=== PATIENT | female | born 2000 | race African-American/Black ===

== ENCOUNTER 2019-07-24 23:37 | Emergency (ER) | payer SELFPAY ==
[2019-07-24 23:41] VITALS: BP 147/84; PULSE 90; RESP 16; TEMP 36.7; O2SAT 99
[2019-07-24 23:48] VITALS: RESP 16
--- NOTE | 2019-07-24 23:53 | ED.GENADUL_ITS ---
Discharge Plan Disposition Patient Disposition: HOME Condition: Stable Discharge Details Chief Complaint: GenMedical Clinical Impression: Rash ED Provider: Grant Benson Home Meds and New Rx's Prescriptions: No Action No Known Home Meds RF: 0 Discharge Instructions Instructions: Acute Rash (ED) Additional Instructions: Your rash is likely from the bug that was found in your bed if itching becomes more severe take 25mg benadryl every 6 hours as needed if rash doesn't resolve in 2-3 weeks see your primary care provider Medical Decision Making 19 yo female who denies chronic medical problems and travels frequently and has been staying in numerous different hotels comes in with mild itching rash for several days on abdomen. Denies fevers, gi symptoms, pain or respiratory symptoms. She did have a phhoto of a bug that was found in one of her beds. She has multiple areas of mild erythema not warm to touch and seems most likely contact dermatitis but possible bed bugs. ADvised to clean thoroughly and use steroid cream prn Differential Diagnosis Differential Diagnosis: dermatitis, bed bugs HPI General Date/Time Provider Initiated Documentation: 07/24/19 23:39 . History of Present Illness 19 year old F presents to the emergency department with the chief complaint of rash, described as moderate, and is localized to the abdomen. Patient reports no radiation. Patient started experiencing this day(s) (3) and it has been constant. No relieving factors improve symptom(s), No exacerbating factors reported . Patient did receive the following treatments prior to arrival, none Related Data Home Medications Medication Instructions Recorded Confirmed Unknown [No Known Home Meds] 07/24/19 07/24/19 Allergies Allergy/AdvReac Type Severity Reaction Status Date / Time No Known Allergies Allergy Unverified 07/24/19 23:44 General Stated Complaint: GenMedical CHRISTINE: 4 Review of Systems All systems reviewed & are unremarkable except as noted in HPI and below Constitutional Constitutional: Denies chills, Denies fever(s) and Denies weakness ENT Ears, Nose, Mouth, and Throat: Denies change in voice Cardiovascular Cardiovascular: Denies chest pain and Denies dyspnea Respiratory Respiratory: Denies cough and Denies dyspnea Gastrointestinal Gastrointestinal: Denies abdominal pain, Denies nausea and Denies vomiting Neurologic Neurologic: Denies weakness Psychiatric Psychiatric: Denies depression PFSH Social History Smoking/Tobacco Use Status: Current every day Tobacco Type: cigarettes Alcohol Intake: current Alcohol Intake frequency: a few times a month Substance use type: does not use Do you feel safe at home: Yes Do you feel safe in your relationship?: Yes Exam Const General: no acute distress Orientation: alert HENMT Head: normal to inspection Ears: external ears normal General nose exam: external nose normal Mouth: moist mucous membranes Eyes General: appearance normal, both eyes and all related structures Neck Neck: normal visual inspection Resp Effort & Inspection: normal respiratory effort and able to speak in complete sentences Cardio Rate: regular rate Skin General skin exam: elasticity normal Neuro General: alert and oriented x3 Extrem General: normal to inspection Psych Mental Status: mental status grossly normal Course Vital Signs Vital signs: Vital Signs Temperature 36.7 C 07/24/19 23:41 Pulse 90 07/24/19 23:41 Respiratory Rate 16 07/24/19 23:41 Blood Pressure 147/84 H 07/24/19 23:41 Pulse Oximetry 99 07/24/19 23:41 Temperature 36.7 C 07/24/19 23:41 Temperature Source Skin 07/24/19 23:41 Pulse 90 07/24/19 23:41 Respiratory Rate 16 07/24/19 23:48 Respiratory Effort 07/24/19 23:48 Respiratory Depth Normal 07/24/19 23:48 Respiratory Pattern Normal 07/24/19 23:48 Blood Pressure 147/84 H 07/24/19 23:41 Blood Pressure Position Sitting 07/24/19 23:41 Pulse Oximetry 99 07/24/19 23:41 Oxygen Delivery Method Room Air 07/24/19 23:41 Oxygen Flow Rate 0 07/24/19 23:41
[2019-07-25] MEDS: Hydrocortisone 1% CR 30 GM TUBE TP
== END 2019-07-25 | disposition home or self-care (01) ==
LOC: ER 07-25 00:11
PROVIDERS: Emergency Provider Emergency Medicine
DX: S30.861A Insect bite (nonvenomous) of abdominal wall, initial encounter (principal); W57.XXXA Bitten or stung by nonvenomous insect and other nonvenomous arthropods, initial encounter
CPT/HCPCS: 99283

== ENCOUNTER 2019-07-28 08:35 | Emergency (ER) | payer SELFPAY ==
[2019-07-28] VITALS (30 sets, daily range): BP systolic 126–154; BP diastolic 75–91; PULSE 63–97; RESP 5–32; TEMP 36.7; O2SAT 99–100
[2019-07-28] MEDS: Acetaminophen 500 MG TAB 1000 MG PO (09:15)
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
[2019-07-28 09:23] LABS: Abs Immature Grans 0.01 k/cumm (0.0-0.09); Absolute Basophil Count 0.01 k/cumm (0.0-0.2); Absolute Eosinophil Count 0.02 k/cumm (0.0-0.7); Absolute Lymphocyte Count 1.31 k/cumm (1.2-3.4); Absolute Monocyte Count 0.47 k/cumm (0.11-0.7); Absolute Neutrophil Count 3.17 k/cumm (1.2-6.7); Basophils % 0.2; Eosinophils % 0.4; HCT 40.7 % (36.0-46.0); HGB 13.2 g/dL (12.0-15.5); Immature Grans % 0.2 %; Lymphocytes % 26.3; Mean Corp. HGB Concentration 32.4 g/dL (32.0-36.0); Mean Corpuscular Hemoglobin 27.1 pg (27.0-33.0); Mean Corpuscular Volume 83.6 fL (80-95); Mean Platelet Volume 10.1 fL (8.0-11.0); Monocytes % 9.4; Neutrophils % 63.5; Platelet Count 300 x1000/uL (130-400); RBC 4.87 m/cumm (4.00-5.20); RBC Distribution Width 14.2 % (11.7-14.6); White Blood Cell Count 4.99 k/cumm (4.4-10.8)
[2019-07-28 09:35] LABS: ALT 10 U/L (14-59); AST 11 U/L (15-37); Alkaline Phosphatase 75 U/L (46-116); Anion Gap 9.5 mmol/L (3-11); BUN 10 mg/dL (7-18); Bilirubin, Total 0.6 mg/dL (0.2-1.0); CO2 25.5 mmol/L (21.0-32.0); CREATININE 0.79 mg/dL (0.55-1.02); Calcium 8.9 mg/dL (8.5-10.1); Chloride 106 mmol/L (98-107); Glucose 87 mg/dL (74-106); PTT Activated 27.4 sec (21.0-31.4); Potassium 3.7 mmol/L (3.5-5.1); Prothrombin Time 10.1 sec (9.3-11.0); Sodium 141 mmol/L (136-145); Total Protein 7.6 g/dL (6.4-8.2)
--- NOTE | 2019-07-28 10:19 | DI.CT_ITS ---
EXAM: CT HEAD CERV SPINE FACIAL WO CLINICAL HISTORY: Trauma, pain COMPARISON: No exams were available for comparison FINDINGS: CT head: There is a normal baca-white matter differentiation. No intracranial hemorrhage is present. There i s no acute midline shift or mass effect. The ventricles are intact. The basilar cisterns are patent . Calvarium is intact. The visualized paranasal sinuses are clear. CT cervical spine: There is mild reversal of the normal cervical lordosis. No acute fracture or subluxation is present. 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 The odontoid is intact. The lateral masses are well aligned. The soft tissues are unremarkable. CT face: There is no evidence of a facial fracture. The orbits are unremarkable. Visualized paranasal sinuse s are clear. IMPRESSION: No acute abnormality. The findings were discussed with the emergency department on the date of the examination.
--- NOTE | 2019-07-28 10:50 | DI.RAD_ITS ---
EXAM: XR FEMUR RT CLINICAL HISTORY: pain. TECHNIQUE: 2D digital imaging was performed. COMPARISON: No exams were available for comparison FINDINGS: BONES: No acute fracture is present. No bony destructive lesion is seen. Visualized portion of knee a nd hip joints are unremarkable. SOFT TISSUE: Normal. IMPRESSION: Unremarkable radiographs of the right femur.
[2019-07-28] MEDS: Ketorolac 15 MG/ML VIAL IVP (11:30)
== END 2019-07-28 13:01 | disposition home or self-care (01) ==
PROVIDERS: Emergency Provider Physician Assistant
DX: R51 Headache (principal); M54.2 Cervicalgia; M25.551 Pain in right hip; S09.90XA Unspecified injury of head, initial encounter; S16.1XXA Strain of muscle, fascia and tendon at neck level, initial encounter; S76.011A Strain of muscle, fascia and tendon of right hip, initial encounter; V43.62XA Car passenger injured in collision with other type car in traffic accident, initial encounter
CPT/HCPCS: 73552; 80053; 96374; 99284; 70450; 70486; 72125; 84703; 85025; 85610; 85730; J1885; L0120